=== PATIENT | female | born 1995 | race African-American/Black ===

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

== ENCOUNTER 2017-05-31 00:11 | Emergency (ER) | payer OTHER ==
[~2017-05-31] VITALS: Ht 167.6 cm; Wt 52.7 kg
[2017-05-31 00:29] VITALS: BP 117/75
== END 2017-05-31 05:14 | disposition home or self-care (01) ==
LOC: M ED 00:11
DX: F43.20 Adjustment disorder, unspecified (principal)

== ENCOUNTER 2018-04-08 09:34 | Emergency (ER) | payer OTHER ==
[2018-04-08 09:59] LABS: CONTROL LINE UCG INT CTR LINE PRESENT; URINE PREG TEST NEGATIVE (NEGATIVE)
[2018-04-08 10:04] LABS: KETONE, URINE AUTO RFX NEGATIVE (NEGATIVE); LEUKOCYTE ESTERASE UR AUTO RFX NEGATIVE (NEGATIVE); MUCUS, URINE RFX SMALL (NEGATIVE); NITRITE, URINE AUTO RFX NEGATIVE (NEGATIVE); RBC, URINE AUTO RFX TNTC /HPF (0-3); SPECIFIC GRAVITY UR AUTO RFX 1.006 (1.002-1.035); SQUAM EPITHELIAL CELL UR AURFX 1 /HPF (0-6); WBC, URINE AUTO RFX 29 /HPF (0-3)
== END 2018-04-08 11:42 | disposition home or self-care (01) ==
LOC: M ED 09:34
DX: N30.91 Cystitis, unspecified with hematuria (principal); F41.9 Anxiety disorder, unspecified; F33.9 Major depressive disorder, recurrent, unspecified; D68.0 Von Willebrand disease; Z79.899 Other long term (current) drug therapy
CPT/HCPCS: 76856

== ENCOUNTER 2018-04-14 14:08 | Emergency (ER) | payer OTHER | END 2018-04-14 15:37 | disposition left against medical advice (07) | LOC: M ED 14:08 | DX: R10.32 Left lower quadrant pain (principal); R11.2 Nausea with vomiting, unspecified; D68.0 Von Willebrand disease; Z79.899 Other long term (current) drug therapy | CPT/HCPCS: 99284 ==